=== PATIENT | female | born 1965 | race Caucasian/White ===

== ENCOUNTER → 2017-12-21 07:56 | Outpatient (CLI) | payer OTHER, SELFPAY ==
[2017-12-21 08:52] LABS: Hemoglobin 13.6 g/dl (12.0-15.0); Mean Corpuscular Hgb 30.3 pg (27.0-32.0); Mean Corpuscular Volume 89.1 fL (81-99); Mean Platelet Vol. 9.2 fl (6.2-12.0); Platelet Count 289 K/mm3 (150-450); RBC Distribution Width CV 12.9 % (11.6-14.6); RBC Distribution Width SD 41.6 fl (35.1-43.9); Red Blood Count 4.49 M/mm3 (4.2-5.4); Scan Indicated on CBC? Y/N NO
[2017-12-21 09:41] LABS: Vitamin B12 666 pg/mL (211-911); Vitamin D,25 Hydroxy 35.5 ng/mL
[2017-12-21 10:08] LABS: ALB/GLOB Ratio 0.9 RATIO (0.9-2.4); AST(SGOT) 20 U/L (15-37); Alanine Aminotransfer ALT/SGPT 38 U/L (12-78); Albumin, Serum 3.3 g/dL (3.4-5.0); Alkaline Phosphatase 132 U/L (45-117); Anion Gap 6 (5-15); BUN 15 mg/dL (7-18); BUN/Creat Ratio 19.8 RATIO (10-20); Calcium,Total 8.6 mg/dL (8.5-10.1); Chloride 106 mmol/L (98-107); Cholesterol 139 mg/dL (200); Creatinine, Serum 0.76 mg/dL (0.55-1.02); EST Glomerular Filtration Rate 85 mL/min (>60); Est Glom Filt Rate - Afr Amer 103 mL/min (>60); Ferritin 132 ng/mL (8-252); Globulin 3.6 g/dL (2.2-4.2); Glucose 108 mg/dL (70-110); High Density Lipoprotein 62 mg/dL; Iron 75 ug/dL (50-170); Magnesium 2.2 mg/dL (1.6-2.6); Potassium 3.9 mmol/L (3.5-5.1); Protein, Total 6.9 g/dL (6.4-8.2); Sodium Level 142 mmol/L (136-145); Triglycerides 63 mg/dL; Very Low Density Lipoprotein 13 mg/dL (5-40)
== END ==
PROVIDERS: Family Provider Family Medicine; PCP Family Medicine
DX: K90.9 Intestinal malabsorption, unspecified (principal); I10 Essential (primary) hypertension; E78.5 Hyperlipidemia, unspecified; E66.9 Obesity, unspecified; E11.9 Type 2 diabetes mellitus without complications; E61.7 Deficiency of multiple nutrient elements
CPT/HCPCS: 36415; 80053; 80061; 82306; 82607; 82728; 82746; 83540; 83735; 84630; 85027

== ENCOUNTER → 2018-02-11 10:56 | Outpatient (CLI) | payer OTHER, SELFPAY | PROVIDERS: Family Provider Family Medicine; PCP Family Medicine; Visit Provider Family Medicine | DX: R30.0 Dysuria (principal) | CPT/HCPCS: 87086 ==

== ENCOUNTER 2018-03-06 08:01 | Day surgery (SDC) | payer OTHER, SELFPAY ==
--- NOTE | 2018-03-06 | COLBX_PTH ---
PATIENT: JEFFERY ALMODOVAR LOC: EN U#:[id number] AGE/SX: 52/F ROOM: RE03/06/[address]: Dr. So Gaona MD : 1965 BED: DIS: 03/06/2018 SPEC #: [id number] RECD: 03/06/18 11:14 STATUS: LOU IRENE #: [id number] DEBRA: 03/06/18 00:[address]: So Gaona DEPT: SURGICAL PATHOLOGY RECD BY: Mehdi Duarte ENTERED: 03/06/18 11:15 SP TYPE: COLON BX OTHR DR: Dr. Rhys Ledezma MD Tissues: A - Descending colon B - Sigmoid colon biopsy Procedures: Surgery Specimen Level IV HEADER OPERATION: Colonoscopy with biopsy PRE-OP DIAGNOSIS: Screening TISSUE SUBMITTED: A ? Polyp descending colon biopsies, B ? Sigmoid polyp biopsy MICROSCOPIC DIAGNOSIS A. Polyp descending colon, biopsy: Fragments of colonic mucosa, no pathologic diagnosis. B. Sigmoid colon polyp, biopsy: Tubular adenoma. MARIELA:williams 03/07/18 MICROSCOPIC DESCRIPTION Slides are reviewed. GROSS DESCRIPTION A - Received in fixative is one container labeled with the patient's name and designated polyp descending colon biopsy. The specimen consists of two irregular fragments of light ortiz soft tissue that in aggregate measure 0.6 x 0.3 x 0.1 cm. The specimen is totally submitted in one cassette. B - Received in fixative is one container labeled with the patient's name and designated sigmoid polyp biopsy. The specimen consists of multiple irregular fragments of light ortiz soft tissue that in aggregate measure 1.3 x 0.3 x 0.1 cm. The specimen is totally submitted in one cassette. / MARIELA:williams 03/06/18 TC:1 CPT: 33978 x2
[2018-03-06 08:19] VITALS: BP 118/83; PULSE 91; RESP 16; TEMP 36.6; O2SAT 94; BMI 34.9
[2018-03-06 09:45] VITALS: BP 106/72; BP 118/83; PULSE 64; RESP 16; TEMP 36.7; O2SAT 97
[2018-03-06 09:50] VITALS: BP 118/83; BP 94/76; PULSE 67; RESP 16; O2SAT 98
--- NOTE | 2018-03-06 09:52 | PCM.OPRPT ---
Report of Operation Date of Procedure: 03/06/18 Pre-Operative Diagnosis: Screening for colon cancer Post-Operative Diagnosis: Descending colon polyp, sigmoid colon polyp, mild diverticulosis of the sigmoid colon Surgery/Procedure Performed:: Colonoscopy with biopsy Type of Anesthesia:: MAC Anesthesiologist: Roddy Albarran Specimen's removed: 1. Ascending colon polyp, 2. Sigmoid colon polyp Estimated Blood Loss (mL): Minimal Description of Procedure: Procedure: Colonoscopy After reviewing the risks benefits, the patient was deemed in satisfactory condition to undergo procedure. After obtaining informed consent, the scope was passed under direct visualization. Throughout the procedure, the patient's blood pressure pulse and position saturations were monitored continuously anesthesia. The colonoscope was introduced through the anus and advanced to the cecum, identified by the appendiceal orifice, IC valve and transillumination. The colonoscopy was performed without difficulty, the colon was somewhat tortuous. The patient tolerated procedure well. Quality of bowel prep was good. Findings: The perianal and digital rectal exam were normal. Small sessile sigmoid and descending colon polyps removed with cold forceps biopsies. Mild diverticulosis was noted in the sigmoid colon. Otherwise the colon (entire examined portion) appeared normal. Retroflexed view of the distal rectum and anal verge was normal and showed no anal or rectal abnormalities Impression: 1. Small sessile descending and sigmoid colon polyps. Biopsied 2. Mild diverticulosis of the sigmoid colon 3. The distal rectal and anal verge were normal on retroflexed view. Recommendations: Await biopsy Recommend high-fiber diet Repeat colonoscopy in 2-3 years for screening purposes depending on biopsy - Complications None
[2018-03-06 09:55] VITALS: BP 114/75; BP 118/83; PULSE 65; RESP 16; O2SAT 96
[2018-03-06 10:00] VITALS: BP 110/80; BP 118/83; PULSE 66; RESP 16; TEMP 36.9; O2SAT 96
[2018-03-06 10:52] VITALS: BP 118/83
== END 2018-03-06 10:54 | disposition home or self-care (01) ==
LOC: EN 08:02 → AC 08:03
PROVIDERS: Family Provider Family Medicine; PCP Family Medicine; Visit Provider Surgery
PROC: 0DJD8ZZ Inspection of Lower Intestinal Tract, Via Natural or Artificial Opening Endoscopic (ICD-10-PCS; CPT 45378; principal; 2018-03-06 08:55)
DX: Z12.11 Encounter for screening for malignant neoplasm of colon (principal); D12.5 Benign neoplasm of sigmoid colon; K63.5 Polyp of colon; K57.30 Diverticulosis of large intestine without perforation or abscess without bleeding; I10 Essential (primary) hypertension; E78.5 Hyperlipidemia, unspecified; E66.9 Obesity, unspecified; G47.30 Sleep apnea, unspecified; F41.9 Anxiety disorder, unspecified; F32.9 Major depressive disorder, single episode, unspecified; Z98.84 Bariatric surgery status; Z68.34 Body mass index [BMI] 34.0-34.9, adult; Z87.891 Personal history of nicotine dependence; Z79.899 Other long term (current) drug therapy
CPT/HCPCS: 45380; 88305; J7120

== ENCOUNTER → 2019-04-08 08:07 | Outpatient (CLI) | payer OTHER, SELFPAY ==
[2019-04-08 11:18] LABS: ALB/GLOB Ratio 1.2 RATIO (0.9-2.4); AST(SGOT) 21 U/L (15-37); Alanine Aminotransfer ALT/SGPT 26 U/L (13-56); Albumin, Serum 3.7 g/dL (3.2-5.0); Alkaline Phosphatase 80 U/L (45-117); Anion Gap 7 (5-15); BUN 22 mg/dL (7-18); Calcium,Total 8.5 mg/dL (8.5-10.1); Chloride 105 mmol/L (98-107); Cholesterol 219 mg/dL (200); Creatinine, Serum 0.82 mg/dL (0.55-1.02); EST Glomerular Filtration Rate 77 mL/min (>60); Est Glom Filt Rate - Afr Amer 94 mL/min (>60); Globulin 3.2 g/dL (2.2-4.2); Glucose 94 mg/dL (74-106); High Density Lipoprotein 86 mg/dL; Potassium 4.2 mmol/L (3.5-5.1); Protein, Total 6.9 g/dL (6.4-8.2); Sodium Level 140 mmol/L (136-145); Thyroid Stim Hormone (TSH) 1.59 uIU/mL (0.358-3.74); Triglycerides 65 mg/dL; Very Low Density Lipoprotein 13 mg/dL (5-40)
== END ==
PROVIDERS: Family Provider Family Medicine; PCP Family Medicine; Referring Provider Family Medicine; Visit Provider Family Medicine
DX: E11.9 Type 2 diabetes mellitus without complications (principal)
CPT/HCPCS: 36415; 80053; 80061; 84443

== ENCOUNTER → 2019-07-17 | Outpatient (CLI) | payer OTHER, SELFPAY ==
[2019-07-17 15:40] LABS: Hematocrit 39.6 % (37-47); Hemoglobin 12.9 g/dL (12.0-15.0); Mean Corp Hgb Conc 32.6 g/dL (32-36); Mean Platelet Vol. 9.2 fl (6.2-12.0); Platelet Count 300 K/mm3 (150-450); RBC Distribution Width CV 12.8 % (11.6-14.6); RBC Distribution Width SD 42.1 fl (35.1-43.9); Red Blood Count 4.45 M/mm3 (4.2-5.4); White Blood Count 5.2 K/mm3 (4.4-11.0)
[2019-07-17 16:19] LABS: Vitamin B12 1830 pg/mL (211-911); Vitamin D,25 Hydroxy 36.1 ng/mL (29.95-100.01)
[2019-07-17 16:20] LABS: Erythrocyte Sedimentation Rate 21 mm/hr (0-30)
[2019-07-17 16:22] LABS: Thyroid Stim Hormone (TSH) 1.02 uIU/mL (0.358-3.74)
[2019-07-17 16:52] LABS: Ferritin 10 ng/mL (8-252); Iron 95 ug/dL (50-170); Magnesium 2.3 mg/dL (1.6-2.6)
[2019-07-18 08:28] LABS: PTHIN 55.2 pg/mL (18.4-80.1)
[2019-07-23 17:05] LABS: Zinc, Plasma or Serum 61 ug/dL (56-134)
== END | disposition home or self-care (01) ==
LOC: MFPLAB 14:36
PROVIDERS: Family Provider Family Medicine; PCP Family Medicine; Referring Provider Family Medicine; Visit Provider Family Medicine
DX: R53.83 Other fatigue (principal); Z98.84 Bariatric surgery status
CPT/HCPCS: 36415; 82306; 82533; 82607; 82728; 82746; 83540; 83735; 83970; 84443; 84630; 85027; 85652

== ENCOUNTER → 2020-07-26 16:42 | Outpatient (CLI) | payer OTHER, SELFPAY ==
[2020-07-26 18:44] LABS: Vitamin D,25 Hydroxy 52.2 ng/mL
[2020-07-26 18:47] LABS: Ferritin 62 ng/mL (8-252); Iron 66 ug/dL (50-170)
== END ==
PROVIDERS: PCP Family Medicine; Referring Provider Family Medicine; Visit Provider Family Medicine
DX: F32.9 Major depressive disorder, single episode, unspecified (principal); Z98.84 Bariatric surgery status
CPT/HCPCS: 36415; 82306; 82728; 83540

== ENCOUNTER → 2020-07-27 08:17 | Outpatient (CLI) | payer OTHER, SELFPAY | LOC: MFPLAB 08:19 → LABSPEC 08:20 | PROVIDERS: PCP Family Medicine; Referring Provider Family Medicine; Visit Provider Family Medicine | DX: R19.7 Diarrhea, unspecified (principal) | CPT/HCPCS: 82274; 87177; 87209; 87493; 87506 ==

== ENCOUNTER → 2020-07-29 12:28 | Outpatient (CLI) | payer OTHER, SELFPAY ==
--- NOTE | 2020-07-29 12:32 | RAD_ITS ---
STUDY: X-RAY - ABDOMEN/PELVIS REASON FOR EXAM: Female, 55 years old. Diarrhea x 2 weeks TECHNIQUE: AP supine and upright views of the abdomen and pelvis. COMPARISON: None. FINDINGS: Normal visualized lung bases. There is an unremarkable bowel gas pattern. There is no demonstrated free abdominal air. Surgical changes and clips seen in the left upper quadrant. The visualized liver, spleen and kidneys are grossly normal in size and morphology. Normal soft tissue structures. Several bilateral acetabular cyst are seen worse on the right and measuring as much as 2.8 cm. Correlate clinically. If there is a history of hip pain, further evaluation of the hips recommended. Otherwise normal visualized osseous structures. RAD/Abd Inc Decub and/or Erect IMPRESSION: No acute abnormality. See comments above. Electronically Signed: Andrew Ellison MD at 18:06 EDT , Service support ,
== END ==
PROVIDERS: PCP Family Medicine; Referring Provider Family Medicine; Visit Provider Family Medicine
DX: R10.9 Unspecified abdominal pain (principal)
CPT/HCPCS: 74019

== ENCOUNTER → 2020-10-18 09:28 | Outpatient (CLI) | payer OTHER, SELFPAY ==
[2020-10-18 10:10] LABS: Hematocrit 42.2 % (37-47); Hemoglobin 13.6 g/dL (12.0-15.0); Mean Corp Hgb Conc 32.2 g/dL (32-36); Mean Corpuscular Volume 93.2 fL (81-99); Mean Platelet Vol. 8.8 fl (6.2-12.0); Platelet Count 295 K/mm3 (150-450); RBC Distribution Width CV 12.2 % (11.6-14.6); Red Blood Count 4.53 M/mm3 (4.2-5.4); White Blood Count 3.7 K/mm3 (4.4-11.0)
[2020-10-18 10:30] LABS: Hemoglobin A1c 5.6 % (3.8-5.6)
[2020-10-18 10:32] LABS: Vitamin B12 > 2000 pg/mL (211-911); Vitamin D,25 Hydroxy 36.6 ng/mL
[2020-10-18 11:08] LABS: ALB/GLOB Ratio 1.1 RATIO (0.9-2.4); AST(SGOT) 20 U/L (15-37); Alanine Aminotransfer ALT/SGPT 25 U/L (13-56); Albumin, Serum 3.7 g/dL (3.2-5.0); Alkaline Phosphatase 78 U/L (45-117); Anion Gap 5 (5-15); BUN 15 mg/dL (7-18); BUN/Creat Ratio 17.6 RATIO (10-20); Calcium,Total 8.8 mg/dL (8.5-10.1); Chloride 108 mmol/L (98-107); Cholesterol 238 mg/dL (200); Creatinine, Serum 0.85 mg/dL (0.55-1.02); EST Glomerular Filtration Rate 73 mL/min (>60); Est Glom Filt Rate - Afr Amer 89 mL/min (>60); Globulin 3.3 g/dL (2.2-4.2); Glucose 96 mg/dL (74-106); High Density Lipoprotein 88 mg/dL; Iron 141 ug/dL (50-170); Sodium Level 143 mmol/L (136-145); Thyroid Stim Hormone (TSH) 1.03 uIU/mL (0.358-3.74); Triglycerides 92 mg/dL; Very Low Density Lipoprotein 18 mg/dL (5-40)
[2020-10-24 12:07] LABS: Vitamin B1, Thiamine 109.1 nmol/L (66.5-200.0)
[2020-10-25 01:42] LABS: Zinc, Plasma or Serum 103 ug/dL (56-134)
== END ==
PROVIDERS: PCP Family Medicine; Visit Provider Family Medicine
DX: I10 Essential (primary) hypertension (principal); E11.9 Type 2 diabetes mellitus without complications; Z98.84 Bariatric surgery status
CPT/HCPCS: 36415; 80053; 80061; 82306; 82607; 82746; 83036; 83540; 84425; 84443; 84630; 85027

== ENCOUNTER 2021-03-16 06:35 | Day surgery (SDC) | payer OTHER, SELFPAY ==
[2021-03-16] VITALS (7 sets, daily range): BP systolic 92–140; BP diastolic 68–84; PULSE 58–74; RESP 16; TEMP 36.4–36.6; O2SAT 95–98; BMI 36.4
[2021-03-16] MEDS: Lactated Ringers 1,000 ML 100 ML IV (07:02)
--- NOTE | 2021-03-16 07:21 | H&P.OPEN ---
History of Present Illness Date of Admission: 03/16/21 The patient is a 55 year old F presents for colonoscopy due to history of colon polyps. Patient last colonoscopy was 03/06/2018 patient had tubular adenoma also tortuous colon. Patient denies any family history of colon cancer. Patient states she has bowel movements daily denies any blood denies any chronic abdominal pain. Past Medical/Surgical History - Planned Operation Planned Operative Procedure/s: CSCOPE OPEN ACCESS Date of Operative Procedure: 03/16/21 Permit Signed: No S.O.S: No Is This Patient Having a Total Joint: No - Previous Hospitalizations/Surgeries HX Hospitalizations: No HX of Surgeries: CSECTION. EGD. gastric bypass 2016. CSCOPE 2018 Any Problems With Anesthesia: No You/Your Family Experience Fever (Hyperthermia) With Anes: No Cholinesterase deficiency: No - Cardiovascular Hx Chest Pain within Last 2 months: No Hx of Irregular Heartbeat and/or Afib: No Hx Heart Attack: No Hx Congestive Heart Failure: No Hx Rheumatic Fever: No Hx Hypertension: Yes - CONTROLLED WITH MED Hx Internal Defibrillator: No Hx Pacemaker: No Hx Cardiac Catheterization: No Hx Cardiac Surgery/Stents/Etc.: No Hx Stress Test: Yes - stress echo 2008 HX Edema: No Hx Pain in Legs when Walking/Leg Cramps: No - Respiratory Chronic Cough: No HX of Shortness of Breath: No - . Hoarseness: No Hx Chronic Obstructive Pulmonary Disease (COPD): No Hx Asthma: No Hx Emphysema: No Hx Sleep Apnea: Yes CPAP: Yes - no use since gastric bypass 05/2017 BIPAP: No Hx Respiratory Tract Infection/Cold (presently): No Result (for STOP score): Positive Hx Smoking: Yes - QUIT 20 YRS AGO Smoking Status: Former smoker - Gastrointestinal Hx Gastroesophageal Reflux: No - occ heartburn Hx Gastrointestinal Disorders: No Hx Gastrointestinal Bleed: No Hx Ulcer: No Hx Hiatal Hernia: No Difficulty Chewing/Swallowing: No Recent Onset of Swallowing Problems: No Special diet followed at home: No - . Hx Unplanned Weight Loss of 20#: No HX Unplanned Weight Gain of 20#: No - Neurological Hx Seizures: No HX Syncope/Blackout Spells/Unconsciousness: No Hx CVA/Stroke: No Hx Transient Ischemic Attacks (TIA): No Hx Multiple Sclerosis: No Hx Parkinson's Disease: No Hx Head/Neck Injury: No Hx Headaches: No Hx Back Injury/Pain: No Recent Onset of Speech Difficulty: No Restless Legs: Yes - ON MED Does patient have nerve stimulator: No Patient instructed to have device shut off: No Rep notified?: No - Blood Disorder Hx Leukemia: No Bleeding Tendencies: No Hx Deep Vein Thrombosis: No Hx High Cholesterol: Yes - ON MED Blood Transmitted Disease: No Hx Hepatitis: No Hx Cirrhosis: No Hx Anemia: Yes - AT TIMES Hx Blood Disorders: No - Reproduction Is Patient Lactating: No Hx Hysterectomy: No Hx Tubal Ligation: No Are You Post Menopause: Yes - Genitourinary Hx Renal Disease: No - Musculoskeletal Hx Arthritis: No Hx Rheumatoid Arthritis: No Hx Gout: No Recent Onset of an Orthopedic Problem: No - Endocrine Hx Diabetes: No - . Insulin: No Thyroid Disease: No Hx Steroid Therapy: No - Psycho/Social Hx Substance Use: No Hx Alcohol Use: Yes - SOCIAL Hx Anxiety: Yes - ON MED Hx Depression: Yes - ON MED Mental Illness: No Hx Dementia: No - Miscellaneous Hx Cancer: No Recent Exposure to Contagious Disease: No Active MRSA: No Hx of C-Diff: No Any Loose Teeth: No Allergies No Known Allergies Allergy (Verified 03/16/21 06:40) - Discharge Is Pt Admitted From a Intermediate, or a Usp: No After D/C, Where Do you Plan to Go: Return Home - Physical Exam Vitals/I&O's: Vital Signs Temp Pulse Resp BP Pulse Ox 97.8 F 63 16 140/84 H 95 03/16/21 06:57 03/16/21 06:57 03/16/21 06:57 03/16/21 06:57 03/16/21 06:57 Oxygen Delivery Method Room Air Weight: 218 lb 14.704 oz Body Mass Index (BMI) 36.4 General: Alert, Oriented x3, Cooperative, No apparent distress HEENT: Atraumatic Lungs: Normal air movement Cardiovascular: Regular rate Abdomen: Soft, Non Tender, Non-Distended Neurological: Cranial nerves II-XII grossly intact Psych/Mental Status: Normal Affect Microbiology Past 72 Hours 03/15/21 11:35 Interface Orders SARS-CoV-2 Antigen (Rapid) - Final Current Medications Lactated Ringer's () 1,000 mls @ 100 mls/hr IV .Q10H ANEL Last Admin: 03/16/21 07:02 Dose: 100 mls/hr Documented by: Assessment/Plan 55-year-old female with history of colon polyps Procedure Criteria Procedure Type: Elective COVID Risk Discussion: The surgeon/proceduralist and patient have discussed in detail the risk of exposure to and/or potential harm posed by the COVID-19 virus with having a surgery/procedure at this time versus the risk of delaying the surgery/procedure. It is not possible to know either the risk of delaying the surgery or procedure or chance of getting an infection with perfect accuracy, but a joint decision was made between the patient and the surgeon/proceduralist to proceed at this time with the scheduled surgery/procedure as indicated on the consent form. Surgery Risks - Colonoscopy I discussed with the patient the risks of the procedure: Yes Risks Include but are not Limited To: Risks include but are not limited to: Bleeding, perforation requiring further surgery, inability to complete colonoscopy requiring barium enema.
--- NOTE | 2021-03-16 12:43 | OP.CCLET_ITS ---
03/16/2021 Leo Ledezma [address] [place] [address] Re : Colonoscopy procedure for Francesca Chatterjee Dear Dr. Ledezma This procedure was performed on Tuesday, March 16, 2021. My impressions and recommendations are as follows: Impressions : - Diverticulosis in the sigmoid colon. - The entire examined colon is normal on direct and retroflexion views. - No specimens collected. Recommendations : - Discharge patient to home. - High fiber diet. - Continue present medications. - Repeat colonoscopy in 10 years for screening purposes. My findings are described in the full procedure note, which is enclosed. If I can be of further assistance, please feel free to contact me at Doctor phone number(s): , Work: . Sincerely, MD So Dee MD 03/16/2021 8:04:04 AM This report has been signed electronically.
--- NOTE | 2021-03-16 12:43 | OP.COLON_ITS ---
Patient Name: Francesca Chatterjee Procedure Date: 03/16/2021 7:21 AM Date of : 1965 Age: 55 Procedure: Colonoscopy Indications: Surveillance: Personal history of adenomatous polyps on last colonoscopy 3 years ago Providers: So Gaona MD Referring MD: Leo Ledezma Medicines: Monitored Anesthesia Care Patient Profile: This is a 55 year old female. Last Colonoscopy: February 2018. Complications: No immediate complications. Procedure: Pre-Anesthesia Assessment: - Prior to the procedure, a History and Physical was performed, and patient medications and allergies were reviewed. The patient's tolerance of previous anesthesia was also reviewed. The risks and benefits of the procedure and the sedation options and risks were discussed with the patient. All questions were answered, and informed consent was obtained. Prior Anticoagulants: The patient has taken no previous anticoagulant or antiplatelet agents. ASA Grade Assessment: Per anesthesia. After reviewing the risks and benefits, the patient was deemed in satisfactory condition to undergo the procedure. After I obtained informed consent, the scope was passed under direct vision. Throughout the procedure, the patient's blood pressure, pulse, and oxygen saturations were monitored continuously. The Colonoscope was introduced through the anus and advanced to the cecum, identified by the appendiceal orifice, ileocecal valve and palpation. The colonoscopy was performed without difficulty. The patient tolerated the procedure well. The quality of the bowel preparation was good. Scope In: 7:35:55 AM Scope Withdrawal Time 0 hours 8 minutes 26 seconds Scope Out: 7:56:16 AM Total Procedure Duration Time 0 hours 20 minutes 21 seconds Findings: The perianal and digital rectal examinations were normal. A few small-mouthed diverticula were found in the sigmoid colon. The entire examined colon appeared normal on direct and retroflexion views. Impression: - Diverticulosis in the sigmoid colon. - The entire examined colon is normal on direct and retroflexion views. - No specimens collected. Recommendation: - Discharge patient to home. - High fiber diet. - Continue present medications. - Repeat colonoscopy in 10 years for screening purposes. Procedure Code(s): --- Professional --- 87639, PT, Colonoscopy, flexible; diagnostic, including collection of specimen(s) by brushing or washing, when performed (separate procedure) Diagnosis Code(s): --- Professional --- Z86.010, Personal history of colonic polyps K57.30, Diverticulosis of large intestine without perforation or abscess without bleeding CPT copyright 2017 [employer]. All rights reserved. The codes documented in this report are preliminary and upon medical biller/coder review may be revised to meet current compliance requirements. MD So Dee MD 03/16/2021 8:04:04 AM This report has been signed electronically. Number of Addenda: 0 Note Initiated On: 03/16/2021 7:21 AM
== END 2021-03-16 08:55 | disposition home or self-care (01) ==
LOC: EN 06:35 → AC 06:35
PROVIDERS: PCP Family Medicine; Referring Provider Family Medicine; Visit Provider Surgery
PROC: 0DJD8ZZ Inspection of Lower Intestinal Tract, Via Natural or Artificial Opening Endoscopic (ICD-10-PCS; CPT 45378; principal; 2021-03-16 07:25)
DX: K57.30 Diverticulosis of large intestine without perforation or abscess without bleeding (principal); I10 Essential (primary) hypertension; E78.00 Pure hypercholesterolemia, unspecified; F32.9 Major depressive disorder, single episode, unspecified; F41.9 Anxiety disorder, unspecified; G25.81 Restless legs syndrome; G47.30 Sleep apnea, unspecified; Z86.010 Personal history of colon polyps; Z87.891 Personal history of nicotine dependence; Z98.84 Bariatric surgery status; Z79.899 Other long term (current) drug therapy
CPT/HCPCS: 45378; 87426; C9803; J7120; J2405

== ENCOUNTER → 2021-04-18 09:22 | Outpatient (CLI) | payer OTHER, SELFPAY ==
[2021-03-16 06:57] VITALS: BMI 36.4
[2021-04-18 13:09] LABS: Anion Gap 4 (5-15); BUN 13 mg/dL (7-18); BUN/Creat Ratio 13.9 RATIO (10-20); Calcium,Total 9.1 mg/dL (8.5-10.1); Chloride 105 mmol/L (98-107); Creatinine, Serum 0.94 mg/dL (0.55-1.02); EST Glomerular Filtration Rate 66 mL/min (>60); Est Glom Filt Rate - Afr Amer 80 mL/min (>60); Glucose 100 mg/dL (74-106); Potassium 4.2 mmol/L (3.5-5.1); Sodium Level 139 mmol/L (136-145); Thyroid Stim Hormone (TSH) 1.35 uIU/mL (0.358-3.74)
[2021-04-19 10:10] LABS: Vitamin B12 1266 pg/mL (211-911)
[2021-04-21 12:28] LABS: Vitamin D,25 Hydroxy 48.1 ng/mL
== END ==
PROVIDERS: PCP Family Medicine; Visit Provider Family Medicine
DX: E11.9 Type 2 diabetes mellitus without complications (principal); E16.2 Hypoglycemia, unspecified; Z98.84 Bariatric surgery status
CPT/HCPCS: 36415; 80048; 82306; 82607; 84443

== ENCOUNTER → 2021-10-26 14:36 | Outpatient (CLI) | payer OTHER, SELFPAY | PROVIDERS: PCP Family Medicine; Visit Provider Family Medicine | DX: Z23 Encounter for immunization (principal) | CPT/HCPCS: 0004A; 91300 ==

== ENCOUNTER 2022-01-06 09:15 | Outpatient (CLI) | payer OTHER, SELFPAY ==
[2022-01-06 10:16] LABS: Erythrocyte Sedimentation Rate 16 mm/hr (0-30); Hemoglobin 13.8 g/dL (12.0-15.0); Mean Corp Hgb Conc 34.5 g/dL (32-36); Mean Corpuscular Hgb 30.4 pg (27.0-32.0); Mean Corpuscular Volume 88.1 fL (81-99); Mean Platelet Vol. 9.1 fl (6.2-12.0); Platelet Count 306 K/mm3 (150-450); RBC Distribution Width CV 12.1 % (11.6-14.6); RBC Distribution Width SD 39.3 fl (35.1-43.9); Red Blood Count 4.54 M/mm3 (4.2-5.4); White Blood Count 4.1 K/mm3 (4.4-11.0)
[2022-01-06 10:35] LABS: Vitamin B12 451 pg/mL (211-911)
[2022-01-06 10:41] LABS: ALB/GLOB Ratio 1.1 RATIO (0.9-2.4); AST(SGOT) 23 U/L (15-37); Alanine Aminotransfer ALT/SGPT 23 U/L (13-56); Albumin, Serum 3.7 g/dL (3.2-5.0); Alkaline Phosphatase 86 U/L (45-117); Anion Gap 6 (5-15); BUN 12 mg/dL (7-18); BUN/Creat Ratio 13.4 RATIO (10-20); Calcium,Total 8.6 mg/dL (8.5-10.1); Chloride 106 mmol/L (98-107); Cholesterol 243 mg/dL (200); Creatinine, Serum 0.89 mg/dL (0.55-1.02); EST Glomerular Filtration Rate 69 mL/min (>60); Est Glom Filt Rate - Afr Amer 84 mL/min (>60); Estradiol 24.6 pg/mL; Ferritin 78 ng/mL (8-252); Globulin 3.3 g/dL (2.2-4.2); Glucose 95 mg/dL (74-106); High Density Lipoprotein 86 mg/dL; Iron 70 ug/dL (50-170); Potassium 3.9 mmol/L (3.5-5.1); Sodium Level 138 mmol/L (136-145); Thyroid Stim Hormone (TSH) 1.52 uIU/mL (0.358-3.74); Triglycerides 76 mg/dL; Very Low Density Lipoprotein 15 mg/dL (5-40)
[2022-01-07 09:50] LABS: MG Sendout 2.3 mg/dL (1.6-2.3)
[2022-01-07 14:48] LABS: ANTINUCLEAR ANTIBODIES DIRECT Negative (Negative)
== END 2022-01-06 23:59 | disposition home or self-care (01) ==
LOC: MFPLAB 09:16
PROVIDERS: PCP Family Medicine; Referring Provider Family Medicine; Visit Provider Family Medicine
DX: G25.81 Restless legs syndrome (principal); E11.9 Type 2 diabetes mellitus without complications; F32.A Depression, unspecified; R53.83 Other fatigue; R68.82 Decreased libido
CPT/HCPCS: 36415; 80053; 80061; 82306; 82533; 82607; 82627; 82670; 82728; 83540; 83735; 84403; 84443; 85027; 85652; 86038; 82626

== ENCOUNTER 2022-02-23 16:45 | Outpatient (CLI) | payer OTHER, SELFPAY ==
[2022-02-23 18:25] LABS: Ferritin 59 ng/mL (8-252); Iron 116 ug/dL (50-170)
== END 2022-02-23 23:59 | disposition home or self-care (01) ==
LOC: MFPLAB 16:48
PROVIDERS: PCP Family Medicine; Referring Provider Family Medicine; Visit Provider Internal Medicine Pulmonary Disease
DX: G25.81 Restless legs syndrome (principal)
CPT/HCPCS: 36415; 82728; 83540

== ENCOUNTER → 2022-04-06 | Outpatient (CLI) | payer OTHER, SELFPAY | END | disposition home or self-care (01) | PROVIDERS: PCP Family Medicine; Referring Provider Family Medicine; Visit Provider Family Medicine | DX: N39.0 Urinary tract infection, site not specified (principal) | CPT/HCPCS: 87077; 87086; 87088; 87186 ==

== ENCOUNTER → 2022-04-20 | Outpatient (CLI) | payer OTHER, SELFPAY ==
--- NOTE | 2022-04-20 16:18 | MRI_ITS ---
STUDY: MRI ORBITS WITH AND WITHOUT CONTRAST REASON FOR EXAM: Female, 56 years old. OPTIC NEURITIS, RIGHT EYE TECHNIQUE: Standardized fat and water weighted pulse sequences were obtained in all 3 orthogonal planes, pre-and post contrast administration. IV DOTAREM 20mL was administered for the contrast portion of the examination. COMPARISON: None. FINDINGS: Normal bilateral globes. Mild to moderate focal atrophy and linear increased signal abnormality is present in the middle to third aspects of the right optic nerve seen image 9/24 series 5. Which is likely the sequela of chronic optic neuritis and/or chronic inflammatory optic neuropathy. Normal left optic nerve sheath complexes and optic nerves. Normal bilateral intraconal and extraconal spaces. Normal bilateral extraocular muscles. No visualized edema or fluid of the optic nerve sheaths or optic nerve, on the current study. No visualized intraorbital edema or fluid or detached retina. Normal optic chiasm and post-chiasmatic tracts. Normal sella turcica, pituitary gland, infundibular stalk, and hypothalamus. Normal bilateral cavernous sinuses. Normal tectal plate and pineal gland. IMPRESSION: 1. Focal atrophy and linear increased signal abnormality is present in the middle to third aspects of the right optic nerve seen image 9/24 series 5. Which is likely the sequela of chronic optic neuritis and/or chronic inflammatory optic neuropathy STUDY: MRI BRAIN WITH AND WITHOUT CONTRAST REASON FOR EXAM: Female, 56 years old. OPTIC NEURITIS, RIGHT EYE TECHNIQUE: Standardized multiplanar fat and water weighted pulse sequences were obtained. IV DOTAREM 20mL was administered for the contrast portion of the examination. COMPARISON: None. FINDINGS: Normal size of the ventricles and extra-axial spaces for the patient''s age. There are a limited number of small white matter hyperintensities, distributed throughout the deep white matter tracts of the cerebral hemispheres, consistent with mild chronic white matter ischemic changes. There is no evidence for recent intracranial ischemia or other cause of cytotoxic edema on diffusion weighted imaging (DWI). Normal T2* images of the brain without demonstrated susceptibility artifact. There is no demonstrated hemosiderin stain. Normal bilateral basal ganglia. Normal thalami. There is no extra-axial fluid accumulation. Normal flow voids within the major intracranial circulation suggesting patency by spin echo criteria. Normal venous enhancement. There is no enhancing intra-axial or extra-axial abnormality. No focal or suspicious brain parenchymal abnormality or lesions or enhancement. No abnormal thickening or enhancement of the meninges or dura. Normal sella turcica, pituitary gland, infundibular stalk, optic chiasm and hypothalamus. Normal tectal plate and pineal gland. There are chronic white matter ischemic changes of the [place]. The midbrain and medulla are otherwise normal. Normal cerebellum. Normal basal cisterns. Normal bilateral temporal bones. Normal bilateral internal auditory canals. No demonstrated orbital abnormality, within the constraints of a routine brain study. Normal visualized paranasal sinuses. Normal calvarium and skull base. Normal visualized soft tissue structures. Normal visualized upper cervical spine. MRI/Brain W/WO Contrast IMPRESSION: 1. Mild chronic ischemic and involutional changes of the brain, as described above. 2. No focal or suspicious brain parenchymal abnormality or lesions or enhancement. No abnormal thickening or enhancement of the meninges or dura. Electronically Signed: Tom Villavicencio MD at 13:23 EDT Reading Location ID and State: [facility] / [place] , Service support ,
== END | disposition home or self-care (01) ==
LOC: MRI 16:08
PROVIDERS: PCP Family Medicine; Referring Provider Ophthalmology; Visit Provider Ophthalmology
DX: H46.9 Unspecified optic neuritis (principal)
CPT/HCPCS: 70553; A9575

== ENCOUNTER → 2023-02-01 | Outpatient (CLI) | payer OTHER, SELFPAY ==
[2023-02-01 10:11] LABS: Vitamin B12 449 pg/mL (211-911); Vitamin D,25 Hydroxy 26.4 ng/mL
[2023-02-01 10:45] LABS: AST(SGOT) 18 U/L (15-37); Alanine Aminotransfer ALT/SGPT 20 U/L (13-56); Albumin, Serum 3.5 g/dL (3.2-5.0); Alkaline Phosphatase 79 U/L (45-117); Anion Gap 9 (5-15); BUN 17 mg/dL (7-18); BUN/Creat Ratio 20.6 RATIO (10-20); Calcium,Total 8.9 mg/dL (8.5-10.1); Chloride 105 mmol/L (98-107); Cholesterol 232 mg/dL (200); Creatinine, Serum 0.83 mg/dL (0.55-1.02); EST Glomerular Filtration Rate 75 mL/min (>60); Est Glom Filt Rate - Afr Amer 91 mL/min (>60); Ferritin 56 ng/mL (8-252); Globulin 3.4 g/dL (2.2-4.2); Glucose 116 mg/dL (74-106); High Density Lipoprotein 66 mg/dL; Potassium 4.1 mmol/L (3.5-5.1); Protein, Total 6.9 g/dL (6.4-8.2); Sodium Level 138 mmol/L (136-145); Thyroid Stim Hormone (TSH) 1.64 uIU/mL (0.358-3.74); Triglycerides 126 mg/dL; Very Low Density Lipoprotein 25 mg/dL (5-40)
[2023-02-05 13:42] LABS: Iron 122 ug/dL (50-170); Iron Binding Capacity,Total 345 ug/dL (250-450); PERCENT IRON SATURATION 35.4 % (15.0-55.0)
== END | disposition home or self-care (01) ==
LOC: MFPLAB 08:28
PROVIDERS: PCP Family Medicine; Referring Provider Family Medicine; Visit Provider Internal Medicine Pulmonary Disease
DX: E11.9 Type 2 diabetes mellitus without complications (principal); E55.9 Vitamin D deficiency, unspecified; G25.81 Restless legs syndrome
CPT/HCPCS: 36415; 80053; 80061; 82306; 82607; 82728; 83540; 83550; 84443

== ENCOUNTER → 2023-04-13 | Outpatient (CLI) | payer OTHER, SELFPAY ==
--- NOTE | 2023-04-13 12:52 | VDLE_ITS ---
Reason For Study: Rule out rt leg DVT RIGHT LEFT GSV is normal. CFV is compressible, spontaneous, phasic, CFV is compressible, spontaneous, phasic, competent, and demonstrates normal competent and demonstrates normal augmentation. augmentation. FV is compressible, spontaneous, phasic, competent and demonstrates normal augmentation. POP V is compressible, spontaneous, phasic, competent and demonstrates normal augmentation. T/P Trunk is compressible. PTV is compressible. RT PerV is compressible. Procedure This is a venous duplex using B-mode, color flow and spectral Doppler. Exam performed in department. The exam was diagnostic. A preliminary report was called and/or faxed to Dr. Garcia office. VL/Venous Duplex US, Unilateral Interpretation Summary There is no evidence of right lower extremity deep vein thrombosis. Right great saphenous vein appears patent and compressible segmentally. Normal flow patterns left common f emoral vein Ordering Physician: Bear Garcia V Referring Physician: Bear Garcia V Performed By: Vicente Jack RVT
== END | disposition home or self-care (01) ==
LOC: CVS 12:50
PROVIDERS: PCP Family Medicine; Referring Provider Internal Medicine Pulmonary Disease; Visit Provider Internal Medicine Pulmonary Disease
DX: M79.661 Pain in right lower leg (principal)
CPT/HCPCS: 93971

== ENCOUNTER → 2023-07-31 | Outpatient (CLI) | payer OTHER, SELFPAY ==
[2023-07-31 13:02] LABS: Ferritin 41 ng/mL (8-252); Iron 102 ug/dL (50-170); Iron Binding Capacity,Total 368 ug/dL (250-450); PERCENT IRON SATURATION 27.7 % (15.0-55.0)
[2023-08-01 04:07] LABS: Transferrin 281 mg/dL (192-364)
== END | disposition home or self-care (01) ==
LOC: MFPLAB 10:13
PROVIDERS: PCP Family Medicine; Visit Provider Internal Medicine
DX: G25.81 Restless legs syndrome (principal)
CPT/HCPCS: 36415; 82728; 83540; 83550; 84466